=== PATIENT | female | born 1980 | race Caucasian/White ===

== ENCOUNTER 2018-02-15 11:37 | Emergency (ER) | payer OTHER ==
[~2018-02-15] VITALS: Ht 172.7 cm; Wt 68.0 kg
[2018-02-15 12:16] LABS: ABSOLUTE NEUTROPHILS 9.7 thou/uL (1.4-8.2); BASOPHILS 0.4 % (0.0-2.0); EOSINOPHILS 0.2 % (0.0-3.0); HEMATOCRIT 47.5 % (37.0-47.0); HEMOGLOBIN 15.9 gm/dL (12.0-15.0); LYMPHOCYTES 11.8 % (24.0-44.0); MCH 28.5 pg (26.0-34.0); MCHC 33.5 g/dL (28.0-37.0); MCV 84.9 fL (80.0-100.0); MONOCYTES 5.2 % (1.0-8.0); PLATELET COUNT 315 thou/uL (150-400); POLYS 82.4 % (36.0-66.0); RDW 13.8 % (10.5-14.5); WBC 11.8 thou/uL (4.0-11.0)
[2018-02-15 12:32] LABS: CALCIUM 9.5 mg/dL (8.5-10.1); CREATININE 1.1 mg/dL (0.6-1.0); POTASSIUM 3.2 mmol/L (3.5-5.1)
[2018-02-15 12:38] LABS: ALBUMIN 4.3 g/dL (3.4-5.0); TOTAL BILIRUBIN 0.8 mg/dL (<0.1-1.0); TOTAL PROTEIN 7.6 g/dL (6.4-8.2)
[2018-02-15 13:44] LABS: URINE BILIRUBIN NEGATIVE (Negative); URINE BLOOD NEGATIVE (Negative); URINE CLARITY CLEAR; URINE COLOR YELLOW; URINE GLUCOSE-RANDOM* NEGATIVE (Negative); URINE KETONES 1+ (Negative); URINE NITRITE-REFLEX NEGATIVE (Negative); URINE PROTEIN (DIPSTICK) NEGATIVE (Negative); URINE SPECIFIC GRAVITY 1.015 (1.005-1.035)
[2018-02-15 13:45] LABS: URINE LEUKOCYTES-REFLEX NEGATIVE (Negative)
[2018-02-15] MEDS ORDERED: PROMS25 WY RECTAL (13:47)
[2018-02-15 13:53] VITALS: BP 114/74
[2018-02-15 13:57] LABS: AMP/METHAMP Negative (Negative); BARBITURATES Negative (Negative); BENZODIAZEPINES POSITIVE (Negative); COCAINE Negative (Negative); METHADONE Negative (Negative); OPIATES POSITIVE (Negative); PCP Negative (Negative)
[2018-02-16] MEDS ORDERED: FLEXERIL PO (22:28)
[2018-02-16] MEDS ORDERED: ZOFRAN ODT4 MG DISSOLVE (22:28)
[2018-02-16] MEDS ORDERED: XANAX 0.25 MG0.25 MG PO (22:28)
[2018-02-16] MEDS ORDERED: OXYCONTIN15 MG PO (22:28)
[2018-02-16] MEDS ORDERED: NUVARING VAGIN1 EACH VAG (22:29)
== END 2018-02-15 14:10 | disposition home or self-care (01) ==
LOC: ER 11:37
PROVIDERS: Emergency Medicine
DX: G50.0 Trigeminal neuralgia (principal); E87.6 Hypokalemia; R11.2 Nausea with vomiting, unspecified; Z88.2 Allergy status to sulfonamides

== ENCOUNTER 2018-02-16 22:12 | Emergency (ER) | payer OTHER ==
[~2018-02-16] VITALS: Ht 172.7 cm; Wt 68.0 kg
[~2018-02-16 22:12] MED LIST: PROMS25 WY RECTAL
[2018-02-16] MEDS ORDERED: FLEXERIL PO (22:28)
[2018-02-16] MEDS ORDERED: OXYCONTIN15 MG PO (22:28)
[2018-02-16] MEDS ORDERED: XANAX 0.25 MG0.25 MG PO (22:28)
[2018-02-16] MEDS ORDERED: ZOFRAN ODT4 MG DISSOLVE (22:28)
[2018-02-16] MEDS ORDERED: NUVARING VAGIN1 EACH VAG (22:29)
[2018-02-16 22:53] LABS: ABSOLUTE NEUTROPHILS 8.7 thou/uL (1.4-8.2); BASOPHILS 0.4 % (0.0-2.0); EOSINOPHILS 0.1 % (0.0-3.0); HEMATOCRIT 45.9 % (37.0-47.0); HEMOGLOBIN 15.8 gm/dL (12.0-15.0); LYMPHOCYTES 22.4 % (24.0-44.0); MCH 29.5 pg (26.0-34.0); MCHC 34.4 g/dL (28.0-37.0); MCV 85.5 fL (80.0-100.0); MONOCYTES 6.7 % (1.0-8.0); PLATELET COUNT 288 thou/uL (150-400); POLYS 70.4 % (36.0-66.0); RBC 5.37 mil/uL (4.20-5.00); WBC 12.3 thou/uL (4.0-11.0)
[2018-02-16 23:02] LABS: CALCIUM 9.4 mg/dL (8.5-10.1); CREATININE 1.3 mg/dL (0.6-1.0); POTASSIUM 3.1 mmol/L (3.5-5.1)
--- NOTE | 2018-02-16 23:39 | EKG ---
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 ESPINAL : 1980 Requested By: Kelsey Blakely Order Number: [id number] MD: Chris Pierce Measurements Intervals Richey Rate: 71 P: 72 PA: 126 QRS: 57 QRSD: 90 T: 59 QT: 382 QTc: 416 Interpretive Statements Sinus rhythm Probable left atrial enlargement Nonspecific T abnormalities, anterior leads No previous ECG available for comparison Electronically Signed On 02-16-2018 23:38:46 PRIMARY TEACHING ASSISTANT by Chris Pierce [email or web address] <ELECTRONICALLY SIGNED> By: Chris Pierce MD 02/16/18 [id number] MD ELOISA Ramirez
[2018-02-17 00:54] VITALS: BP 108/78
== END 2018-02-17 00:59 | disposition home or self-care (01) ==
LOC: ER 22:12
PROVIDERS: Student in an Organized Health Care Education/Training Program
DX: R51 Headache (principal); R11.2 Nausea with vomiting, unspecified; Z88.2 Allergy status to sulfonamides

== ENCOUNTER 2018-10-20 15:11 | Emergency (ER) | payer OTHER ==
[~2018-10-20] VITALS: Ht 170.2 cm; Wt 70.3 kg
[~2018-10-20 15:11] MED LIST changes: +FLEXERIL PO; +NUVARING VAGIN1 EACH VAG; +OXYCONTIN15 MG PO; +XANAX 0.25 MG0.25 MG PO; +ZOFRAN ODT4 MG DISSOLVE
[2018-10-20 15:12] VITALS: BP 109/81
[2018-10-20 15:48] LABS: ABSOLUTE NEUTROPHILS 6.7 thou/uL (1.4-8.2); BASOPHILS 0.2 % (0.0-2.0); HEMATOCRIT 43.6 % (37.0-47.0); HEMOGLOBIN 14.9 gm/dL (12.0-15.0); LYMPHOCYTES 15.4 % (24.0-44.0); MCH 29.4 pg (26.0-34.0); MCHC 34.1 g/dL (28.0-37.0); MCV 86.3 fL (80.0-100.0); MONOCYTES 3.7 % (1.0-8.0); PLATELET COUNT 262 thou/uL (150-400); POLYS 80.7 % (36.0-66.0); RBC 5.05 mil/uL (4.20-5.00); RDW 13.9 % (10.5-14.5); WBC 8.3 thou/uL (4.0-11.0)
[2018-10-20 16:01] LABS: CALCIUM 9.1 mg/dL (8.5-10.1); CREATININE 0.9 mg/dL (0.6-1.0); POTASSIUM 4.3 mmol/L (3.5-5.1)
== END 2018-10-20 18:09 | disposition home or self-care (01) ==
LOC: ER 15:11
PROVIDERS: Nurse Practitioner Family
DX: G50.0 Trigeminal neuralgia (principal); R11.2 Nausea with vomiting, unspecified; Z88.2 Allergy status to sulfonamides; Z88.6 Allergy status to analgesic agent